=== PATIENT | male | born 1990 | race Caucasian/White ===

== ENCOUNTER 2019-02-16 05:00 | Emergency (ER) | payer SELFPAY ==
[~2019-02-16] VITALS: Ht 180.3 cm; Wt 68.0 kg
[2019-02-16] MEDS ORDERED: NS IV 1000 ML 1,000 ML IV ONE (05:07)
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
[2019-02-16 05:24] LABS: BASOPHILS # (AUTO) 0.1 10^3/uL (0.0-0.1); BASOPHILS % (AUTO) 1 % (0-10); EOSINOPHILS # (AUTO) 0.2 10^3/uL (0.0-0.3); EOSINOPHILS % (AUTO) 3 % (0-10); HEMATOCRIT 42 % (40-54); HEMOGLOBIN 14.4 G/DL (13.3-17.7); LYMPHOCYTES # (AUTO) 2.4 X 10^3 (1.0-4.0); LYMPHOCYTES % (AUTO) 27 % (12-44); MEAN CORPUSCULAR HEMOGLOBIN 30 PG (25-34); MEAN CORPUSCULAR HGB CONC 34 G/DL (32-36); MEAN CORPUSCULAR VOLUME 88 FL (80-99); MEAN PLATELET VOLUME 10.4 FL (7.4-10.4); MONOCYTES # (AUTO) 1.2 X 10^3 (0.0-1.0); MONOCYTES % (AUTO) 14 % (0-12); NEUTROPHILS % (AUTO) 57 % (42-75); PLATELET COUNT 219 10^3/uL (130-400); RED CELL DISTRIBUTION WIDTH 12.8 % (10.0-14.5); WHITE BLOOD COUNT 8.9 10^3/uL (4.3-11.0)
[2019-02-16 05:42] LABS: INR 0.9 (0.8-1.4)
[2019-02-16 05:49] LABS: ALANINE AMINOTRANSFERASE 61 U/L (0-55); ALBUMIN 4.4 GM/DL (3.2-4.5); ALKALINE PHOSPHATASE 68 U/L (40-136); AMYLASE 77 U/L (25-125); BILIRUBIN,TOTAL 0.4 MG/DL (0.1-1.0); BUN/CREATININE RATIO 15; CALCIUM 9.7 MG/DL (8.5-10.1); CARBON DIOXIDE 26 MMOL/L (21-32); CHLORIDE 105 MMOL/L (98-107); CREATININE SERUM 1.17 MG/DL (0.60-1.30); GFR ESTIMATED > 60; GLUCOSE 106 MG/DL (70-105); LIPASE 34 U/L (8-78); MAGNESIUM 2.6 MG/DL (1.8-2.4); POTASSIUM 3.8 MMOL/L (3.6-5.0); SODIUM 139 MMOL/L (135-145); TOTAL PROTEIN 7.4 GM/DL (6.4-8.2)
[2019-02-16 05:52] LABS: ACETAMINOPHEN < 10 UG/ML (10-30)
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
[2019-02-16] MEDS ORDERED: TETANUS,DIPTH,PERTUSS P/F (BOOSTRIX) 0.5 ML VIAL IM ONE (07:00)
[2019-02-16] MEDS ORDERED: LIDOCAINE/EPI 2% 1:100,00 (XYLOCAINE) 20 ML VIAL INJ ONE (07:45)
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
--- NOTE | 2019-02-16 08:43 | NUR ---
PT HAD 750ML URINE OUTPUT
[2019-02-16 08:49] LABS: BILIRUBIN,URINE NEGATIVE (NEGATIVE); CLARITY,URINE SLIGHTLY CLOUDY; COLOR,URINE YELLOW; GLUCOSE, URINE (UA) NEGATIVE (NEGATIVE); KETONES,URINE NEGATIVE (NEGATIVE); LEUKOCYTE ESTERASE ,URINE NEGATIVE (NEGATIVE); NITRITE,URINE NEGATIVE (NEGATIVE); PH,URINE 7 (5-9); PROTEIN,URINE NEGATIVE (NEGATIVE); UROBILINOGEN,URINE NORMAL (NORMAL)
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
[2019-02-16 09:03] LABS: AMPHETAMINE SCREEN, URINE POSITIVE (NEGATIVE); BARBITURATE SCREEN URINE NEGATIVE (NEGATIVE); BENZODIAZEPINES SCREEN URINE NEGATIVE (NEGATIVE); CANNABINOID SCREEN, URINE POSITIVE (NEGATIVE); COCAINE SCREEN URINE NEGATIVE (NEGATIVE); METHADONE STAT NEGATIVE (NEGATIVE); METHAMPHETAMINE SCREEN URINE S NEGATIVE (NEGATIVE); OPIATE SCREEN URINE NEGATIVE (NEGATIVE); OXYCODONE STAT NEGATIVE (NEGATIVE); PROPOXYPHENE STAT NEGATIVE (NEGATIVE); TRICYCLIC ANTIDEPRESSANTS SCRE NEGATIVE (NEGATIVE)
[2019-02-16 09:07] LABS: BACTERIA,URINE NEGATIVE /HPF
[2019-02-16 09:21] VITALS: BP 131/81
== END 2019-02-16 09:21 | disposition home or self-care (01) ==
LOC: ER 05:04
DX: S01.81XA Laceration without foreign body of other part of head, initial encounter (principal); M25.561 Pain in right knee; M25.562 Pain in left knee; F17.210 Nicotine dependence, cigarettes, uncomplicated; Z23 Encounter for immunization; V53.6XXA Passenger in pick-up truck or van injured in collision with car, pick-up truck or van in traffic accident, initial encounter
CPT/HCPCS: 12011; 36415; 70450; 70486; 71045; 71260; 72125; 72170; 73562; 74177; 80053; 80306; 80320; 80329; 81000; 82150; 83690; 83735; 85025; 85610; 85730; 90471; 90715; 93005; 93041; 96360; 96361

== ENCOUNTER 2020-11-16 00:36 | Emergency (ER) | payer SELFPAY ==
[~2020-11-16] VITALS: Ht 175.2 cm; Wt 72.5 kg
[2020-11-16] MEDS ORDERED: KETOROLAC 60 MG/2 ML VIAL IM ONE (01:00)
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
[2020-11-16] MEDS ORDERED: TRAM-42 PO (01:22)
[2020-11-16] MEDS ORDERED: IBUP-1780 PO (01:22)
[2020-11-16] MEDS ORDERED: RX-TRAMADOL 50 MG (ULTRAM) TAB PPK#4 PO STA (01:53)
[2020-11-16] MEDS ORDERED: RX-IBUPROFEN 600 MG (MOTRIN) TAB PPK#4 PO STA (01:53)
[2020-11-16 02:10] VITALS: BP 130/76
== END 2020-11-16 02:11 | disposition home or self-care (01) ==
LOC: EDUNIT# 00:36 → ER 00:38
DX: T20.16XA Burn of first degree of forehead and cheek, initial encounter (principal); T20.14XA Burn of first degree of nose (septum), initial encounter; T26.02XA Burn of left eyelid and periocular area, initial encounter; T26.01XA Burn of right eyelid and periocular area, initial encounter; F17.210 Nicotine dependence, cigarettes, uncomplicated; X04.XXXA Exposure to ignition of highly flammable material, initial encounter
CPT/HCPCS: 99284

== ENCOUNTER 2021-09-26 14:29 | Emergency (ER) | payer SELFPAY ==
[~2021-09-26] VITALS: Ht 175 cm; Wt 72.0 kg
[~2021-09-26 14:29] MED LIST: IBUP-1780 PO; TRAM-42 PO
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
[2021-09-26] MEDS ORDERED: CEPH500T PO (14:56)
[2021-09-26] MEDS ORDERED: TRM50T PO (14:57)
[2021-09-26] MEDS ORDERED: IBUPROFEN 600 MG (MOTRIN) TAB PO ONE (15:00)
[2021-09-26 15:14] VITALS: BP 115/80
== END 2021-09-26 15:14 | disposition home or self-care (01) ==
LOC: EDUNIT# 14:29 → ER 14:31
DX: L03.116 Cellulitis of left lower limb (principal)
CPT/HCPCS: 99283